=== PATIENT | female | born 1970 | race Caucasian/White ===

== ENCOUNTER 2018-08-06 17:33 | Emergency (ER) | payer MEDICAID, SELFPAY ==
[2018-08-06 17:44] VITALS: BP 176/105; PULSE 92; RESP 16; TEMP 37; O2SAT 98
[2018-08-06 18:07] VITALS: RESP 18
--- NOTE | 2018-08-06 18:15 | ED.GENADUL_ITS ---
Discharge Plan Disposition Patient Disposition: HOME Condition: Stable Discharge Details Chief Complaint: GenMedical Clinical Impression: Influenza Primary Care Provider: LYDIA DUMAS ED Provider: Michael Medina Home Meds and New Rx's Prescriptions: New benzonatate 200 mg capsule 200 mg PO TID PRN (Reason: cough) Qty: 30 RF: 0 Discharge Instructions Instructions: Influenza (ED) Additional Instructions: During illness stay well-hydrated and get plenty of rest. Continue to use [id number] cough and cold medication such as Tylenol cold and flu severe or other symptomatic treatment. Return immediately to the emergency department for any significant worsening of symptoms, return of fever after 7 days, or further concerns you may have. Otherwise if not starting improving after 1 week follow-up with primary care provider for reassessment Referrals: LYDIA DUMAS [Primary Care Provider] - (As needed for reassessment) Discharge Data Discharge Date/Time-TO BE ENTERED AT DEPARTURE: 08/06/18 18:25 Medical Decision Making Flulike symptoms for 3 days, improving today with no fever but continued body aches, physical exam consistent with influenza type illness without signs of secondary bacterial infection including pneumonia, strep pharyngitis, otitis media. No signs of meningitis. Patient nontoxic no sign of sepsis. flu testing was offered but given greater than 48 hours did inform her that she is past treatment window for Tamiflu. After discussion patient denied testing. Patient prescribed Tessalon Perles and report return precautions were discussed. After discussion of diagnosis and plan of care patient is no further needs, questions, or concerns and states clear understanding to return to the emergency department for any worsening symptoms. HPI General Mode of arrival: ambulatory . Date/Time Provider Initiated Documentation: 08/06/18 17:48 . Limitations to Documentation: no limitations . Information obtained by: patient and RN notes reviewed . History of Present Illness 47 year old F presents to the emergency department with the chief complaint of flu like illness, Quality is described as aching (Generalized body), Patient started experiencing this day(s) (3) and it has been constant. Patient did receive the following treatments prior to arrival, NSAID Related Data Home Medications Medication Instructions Recorded Confirmed benzonatate 200 mg PO TID PRN #30 cap 08/06/18 Previous Rx's Medication Instructions Recorded benzonatate 200 mg PO TID PRN #30 cap 08/06/18 Allergies Allergy/AdvReac Type Severity Reaction Status Date / Time No Known Allergies Allergy Unverified 08/06/18 18:08 General Stated Complaint: GenMedical JULIOCESAR: 4 Review of Systems Constitutional Reports body ache(s), Reports chills, Reports fever(s), Reports headache(s) and Reports malaise Eyes Denies eye discharge ENT Reports as per HPI, Denies ear discharge, Denies otalgia, Reports headache(s), Reports nasal congestion, Reports nasal discharge, Denies neck pain, Denies sinus pain, Reports sinus pressure, Reports sore throat and Denies throat swelling Cardiovascular Denies chest pain and Denies dyspnea Respiratory Reports cough and Denies dyspnea Musculoskeletal Denies joint swelling and Denies neck pain Integumentary/Breasts Denies rash Neurologic Reports headache(s) Allergic/Immunologic Denies throat swelling [facility] Social History Smoking and Tabacco status: Never Exam Const General: cooperative, comfortable and no acute distress Orientation: alert and awake [facility] Head: normal to inspection, normocephalic and atraumatic Ears: hearing grossly normal bilaterally and TM's normal bilaterally General nose exam: external nose normal Face and sinus: normal facial exam, sinuses nontender and no erythema Mouth: oral mucosae normal, no drooling, no muffled voice and no trismus Throat: posterior oropharynx normal, tonsils normal and uvula midline Neck Neck: normal visual inspection, full ROM, no lymphadenopathy, no meningeal signs, trachea midline and supple Resp Effort & Inspection: normal respiratory effort, able to speak in complete sentences and cough Quality of cough: dry Auscultation: clear to auscultation bilaterally Cardio Rate: regular rate Rhythm: regular rhythm Heart Sounds: S1 normal, S2 normal, normal S1 and S2, no click, no gallops, no murmurs and no rubs Skin General skin exam: no rashes or lesions noted and dry skin (warm) Neuro General: alert, awake, oriented x3, gait normal and moves all extremities Cognition: normal cognition Speech: speech normal Course Vital Signs Temperature 37.0 C 08/06/18 17:44 Pulse 92 H 08/06/18 17:44 Respiratory Rate 16 08/06/18 17:44 Blood Pressure 176/105 H 08/06/18 17:44 Pulse Oximetry 98 08/06/18 17:44 Temperature 37.0 C 08/06/18 17:44 Temperature Source Temporal Artery Scan 08/06/18 17:44 Pulse 92 H 08/06/18 17:44 Respiratory Rate 18 08/06/18 18:07 Respiratory Effort Non-Labored 08/06/18 18:07 Respiratory Depth Normal 08/06/18 18:07 Respiratory Pattern Normal 08/06/18 18:07 Blood Pressure 176/105 H 08/06/18 17:44 Pulse Oximetry 98 08/06/18 17:44 Oxygen Delivery Method Room Air 08/06/18 17:44 Oxygen Flow Rate 0 08/06/18 17:44 Pain Level 5 08/06/18 18:09 Lab/Test Results Lab/Test Results: 08/06/18 17:48 Nasopharynx Influenza Types A,B Antigen - Pending
== END 2018-08-06 18:25 | disposition home or self-care (01) ==
PROVIDERS: Emergency Provider Nurse Practitioner Family; PCP Nurse Practitioner Adult Health
DX: J10.89 Influenza due to other identified influenza virus with other manifestations (principal)
CPT/HCPCS: 87449; 99283

== ENCOUNTER 2023-11-23 10:30 | Outpatient (REF) | payer OTHER, SELFPAY ==
[2023-11-23 15:47] LABS: Bilirubin Negative (Negative); Blood Large (Negative); Clarity Sl Cloudy (Clear); Glucose Negative (Negative); Ketones Negative (Negative); Leukocyte Esterase Moderate (Negative); Nitrite Negative (Negative); Urobilinogen 0.2 mg/dL (Up to 0.2)
[2023-11-23 16:04] LABS: Epithelial Cells Few HPF (Negative); RBC >50 HPF (0-2); WBC >50 HPF (0-5)
[2023-11-23 16:05] LABS: Bacteria Moderate HPF (Negative); C & S Indicated? Yes; Casts Negative LPF (Negative); Crystals Negative HPF (Negative); Mucus Moderate (Negative)
== END 2023-11-23 10:31 | disposition home or self-care (01) ==
LOC: LBN 10:30
PROVIDERS: PCP Nurse Practitioner Adult Health; Visit Provider Nurse Practitioner Family
DX: N39.0 Urinary tract infection, site not specified (principal); B96.29 Other Escherichia coli [E. coli] as the cause of diseases classified elsewhere; R82.89 Other abnormal findings on cytological and histological examination of urine
CPT/HCPCS: 87077; 81003; 81015; 87086; 87186

== ENCOUNTER 2024-05-20 17:53 | Outpatient (REF) | payer OTHER, SELFPAY | END 2024-05-20 17:54 | disposition home or self-care (01) | LOC: LBN 17:53 | PROVIDERS: PCP Nurse Practitioner Adult Health; Visit Provider Physician Assistant | DX: J02.9 Acute pharyngitis, unspecified (principal) | CPT/HCPCS: 87070 ==

== ENCOUNTER 2024-07-10 18:00 | Outpatient (REF) | payer OTHER, SELFPAY | END 2024-07-10 18:01 | disposition home or self-care (01) | LOC: LBN 18:00 | PROVIDERS: PCP Nurse Practitioner Adult Health; Visit Provider Physician Assistant | DX: R23.9 Unspecified skin changes (principal); L02.91 Cutaneous abscess, unspecified | CPT/HCPCS: 87070; 87205 ==